=== PATIENT | female | born 1985 | race Caucasian/White ===

== ENCOUNTER 2023-05-26 08:32 | Outpatient (CLI) | payer MEDICAID ==
[~2023-05-26 08:32] MED LIST: NO HOME MEDS
[2023-05-26 10:49] LABS: BASOPHILS % (AUTO) 0.3 % (0-1); EOSINOPHILS # (AUTO) 0.1 X10'3 (0-0.9); EOSINOPHILS % (AUTO) 0.7 % (0-6); HEMATOCRIT 35.8 % (35.0-45.0); HEMOGLOBIN 12.1 g/dl (12.0-16.0); LYMPHOCYTES # (AUTO) 1.8 X10'3 (1.1-4.8); MEAN CORPUSCULAR HEMOGLOBIN 32.2 PG (27.0-31.0); MEAN CORPUSCULAR HGB CONC 33.7 g/dL (33.0-36.5); MEAN CORPUSCULAR VOLUME 95.6 FL (78-98); MEAN PLATELET VOLUME 7.6 FL (7.4-10.4); MONOCYTES # (AUTO) 0.6 X10'3 (0-0.9); MONOCYTES % (AUTO) 6.7 % (2-12); NEUTROPHILS # (AUTO) 6.2 X10'3 (1.8-7.7); NEUTROPHILS % (AUTO) 71.3 % (42-75); PLATELET COUNT 223 X10'3 (140-440); RED BLOOD COUNT 3.75 X10'6 (4.20-5.60); RED CELL DISTRIBUTION WIDTH 13.8 % (11.5-14.5); WHITE BLOOD COUNT 8.7 X10'3 (4.5-11.0)
[2023-05-26 11:05] LABS: ANION GAP 8 (8-16); BLOOD UREA NITROGEN 7 MG/DL (7-18); BUN/CREATININE RATIO 14.9 (10.0-20.0); CHLORIDE 100 MMOL/L (99-107); CREATININE 0.47 MG/DL (0.40-0.90); GLUCOSE 91 MG/DL (70-104); POTASSIUM 4.2 MMOL/L (3.5-5.1); SODIUM 134 MMOL/L (135-145); TOTAL CARBON DIOXIDE 26.4 MMOL/L (24-32); eGFR > 90 ML/MIN
== END 2023-05-26 23:59 | disposition home or self-care (01) ==
LOC: RAD 08:32
PROVIDERS: ATTEND Nurse Practitioner Family
DX: K80.20 Calculus of gallbladder without cholecystitis without obstruction (principal); R10.11 Right upper quadrant pain; K82.9 Disease of gallbladder, unspecified
CPT/HCPCS: 36415; 76700; 80048; 85025

== ENCOUNTER 2024-08-14 05:31 | Day surgery (SDC) | payer MEDICAID ==
[2024-08-09 09:37] LABS: BASOPHILS % (AUTO) 0.4 % (0-1); EOSINOPHILS # (AUTO) 0.1 X10'3 (0-0.9); EOSINOPHILS % (AUTO) 1.9 % (0-6); LYMPHOCYTES # (AUTO) 2.5 X10'3 (1.1-4.8); LYMPHOCYTES % (AUTO) 36.5 % (21-51); MEAN CORPUSCULAR HEMOGLOBIN 31.1 PG (27.0-31.0); MEAN CORPUSCULAR HGB CONC 32.9 g/dL (33.0-36.5); MEAN CORPUSCULAR VOLUME 94.7 FL (78-98); MEAN PLATELET VOLUME 6.9 FL (7.4-10.4); MONOCYTES # (AUTO) 0.4 X10'3 (0-0.9); MONOCYTES % (AUTO) 6.3 % (2-12); NEUTROPHILS # (AUTO) 3.7 X10'3 (1.8-7.7); NEUTROPHILS % (AUTO) 54.9 % (42-75); PRE OP HEMATOCRIT 37.9 % (35.0-45.0); PRE OP HEMOGLOBIN 12.5 g/dL (12.0-16.0); PRE OP PLATELET COUNT 267 X10'3 (140-440); PRE OP WHITE BLOOD COUNT 6.8 10'3 (4.8-10.8); RED BLOOD COUNT 4.01 X10'6 (4.20-5.60); RED CELL DISTRIBUTION WIDTH 13.2 % (11.5-14.5)
[2024-08-09 09:53] LABS: ALBUMIN 3.8 G/DL (3.4-5.0); ALBUMIN/GLOBULIN RATIO 0.8 (1.1-1.5); ALKALINE PHOSPHATASE 102 IU/L (46-116); BLOOD UREA NITROGEN 13 MG/DL (7-18); BUN/CREATININE RATIO 27.1 (10.0-20.0); CALCIUM 8.6 MG/DL (8.5-10.1); CHLORIDE 105 MMOL/L (99-107); CREATININE 0.48 MG/DL (0.40-0.90); PRE OP ALT 23 U/L (30-65); PRE OP ANION GAP 6 (8-16); PRE OP AST 15 U/L (10-37); PRE OP BILIRUB, TOTAL 0.3 MG/DL (0.0-1.0); PRE OP GLUCOSE 100 MG/DL (70-104); PRE OP POTASSIUM 4.3 MMOL/L (3.4-5.1); PRE OP SODIUM 138 MMOL/L (135-145); TOTAL CARBON DIOXIDE 27.3 MMOL/L (24-32); TOTAL PROTEIN 8.4 G/DL (6.4-8.2); eGFR > 90 ML/MIN
[~2024-08-14] VITALS: Ht 165.1 cm; Wt 92.4 kg
[2024-08-14] VITALS (7 sets, daily range): BP systolic 111–144; BP diastolic 64–91; PULSE 49–76; RESP 13–16; TEMP 97; O2SAT 97–98
[~2024-08-14 05:31] MED LIST changes: +ASCO500C17 PO; +DHA PO; -NO HOME MEDS; +PRENATAL PO; +[UNRECOGNIZED DRUG - OTHER] PO; +ceFAZolin 2gm in dextrose, iso 50 ML IV ONE
[2024-08-14] MEDS: INDOCYANINE GREEN 25 MG/10 ML VIAL IV ONE (06:01)
[2024-08-14] MEDS: ringers solution, lacted 1,000 ML IV SCH (06:01)
[2024-08-14] MEDS: famotidine 20mg tablet PO ONE (06:09)
[2024-08-14] MEDS ORDERED: BUPIVAcaine 2.5mg/ml inj 50ml vial (contains preservative) ONE (06:43)
[2024-08-14] MEDS ORDERED: LIDOcaine 1% 30ml preserv. free vial ONE (06:43)
[2024-08-14] MEDS ORDERED: hydrALAZINE 20mg/ml inj. IV PRN (07:10)
[2024-08-14] MEDS ORDERED: ringers solution, lacted 1,000 ML IV SCH (07:10)
[2024-08-14] MEDS ORDERED: ondansetron/PF 4mg/2ml inj IV PRN (07:10)
[2024-08-14] MEDS ORDERED: fentaNYL/PF 50MCG/1 ML 2ML syringe IV PRN (07:10)
[2024-08-14] MEDS ORDERED: labetalol 20mg/4ml (5mg/ml) syringe IV PRN (07:10)
[2024-08-14] MEDS ORDERED: morphine 2 MG/ML inj. syringe IV PRN (07:10)
[2024-08-14] MEDS ORDERED: fentaNYL/PF 50MCG/1 ML 2ML syringe ONE (07:14)
[2024-08-14] MEDS ORDERED: acetaminophen 1,000mg/100ml IV 100 ML IV ONE (07:15)
[2024-08-14] MEDS ORDERED: midazolam 1 mg/ML 2ml injection ONE (07:15)
[2024-08-14] MEDS ORDERED: ondansetron/PF 4mg/2ml inj ONE (07:16)
[2024-08-14] MEDS ORDERED: propofol inj 20 ML IV ONE (07:16)
[2024-08-14] MEDS ORDERED: glycopyrrolate 0.2mg/ml inj ONE (07:16)
[2024-08-14] MEDS ORDERED: neostigmine methylsulfate 1 MG/ML 10ml vial ONE (07:16)
[2024-08-14] MEDS ORDERED: rocuronium 10mg/ml inj IV ONE (07:16)
[2024-08-14] MEDS ORDERED: dexamethasone sod phosphate 4mg/ml inj. ONE (07:16)
[2024-08-14] MEDS ORDERED: LIDOcaine 2% (20mg/ml) 5ml vial ONE (07:16)
[2024-08-14] MEDS ORDERED: sevoflurane 250ml liquid IH ONE (07:42)
[2024-08-14] MEDS: BUPIVAcaine/PF 2.5 mg/ml (0.25%) 30ml vial IJ ONE (07:55)
[2024-08-14] MEDS ORDERED: labetalol 20mg/4ml (5mg/ml) syringe IV ONE (08:08)
[2024-08-14] MEDS: morphine 4 MG/ML inj SYRINge IV PRN (09:01)
[2024-08-14] MEDS: fentaNYL/PF 50MCG/1 ML 2ML syringe IV PRN (09:13)
[2024-08-14] MEDS: oxyCODONE/APAP 5-325mg tablet PO PRN (09:14)
== END 2024-08-14 09:45 | disposition home or self-care (01) ==
LOC: PAS 05:31
PROVIDERS: ATTEND Surgery
DX: K80.10 Calculus of gallbladder with chronic cholecystitis without obstruction (principal); Z79.899 Other long term (current) drug therapy; Z98.890 Other specified postprocedural states; Z90.710 Acquired absence of both cervix and uterus; Z91.040 Latex allergy status; Z88.8 Allergy status to other drugs, medicaments and biological substances; Z72.89 Other problems related to lifestyle; Z87.891 Personal history of nicotine dependence
CPT/HCPCS: 36415; 47563; 80053; 82948; 85025; 93005; J0131; J0690; J1100; J2003; J2250; J2270; J2405; J2704; J2710; J3010; J3490; J7030; J7120; S2900; Z7506; Z7508; Z7512; A4215; A4618; A7000